=== PATIENT | male | born 1980 | race Two or more races ===

== ENCOUNTER 2022-08-07 14:34 | Emergency (ER) | payer SELFPAY ==
[~2022-08-07] VITALS: Ht 175.3 cm; Wt 82.6 kg
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
[2022-08-07] MEDS: IV NS 0.9% 1,000 ML IV ONE ×2 (14:48→16:48)
[2022-08-07] MEDS ORDERED: LIDOCAINE 5% OINT 35.44 GM TUBE TP STA (14:58)
[2022-08-07] MEDS ORDERED: TDAP [DIPH/PERTUSSIS/TET] 0.5 ML VIAL IM ONE ×2 (15:00→15:23)
[2022-08-07] MEDS ORDERED: LIDOCAINE VISCOUS 2% UD 15 ML UDC ONE (15:22)
[2022-08-07 15:28] LABS: CREATININE 1.4 mg/dL (0.6-1.3); POTASSIUM 4.1 mmol/L (3.5-5.1)
[2022-08-07] MEDS ORDERED: CT SWABBABLE VALVE TRANS SET 1 EA INFUS.SET MC ONE (15:43)
[2022-08-07] MEDS ORDERED: IV NS 0.9% 250 ML IV ONE (15:43)
[2022-08-07] MEDS ORDERED: IOHEXOL-350 100 ML VIAL IV ONE (15:43)
[2022-08-07] MEDS ORDERED: LIDO85CR9 TP (16:37)
[2022-08-07] MEDS ORDERED: CYCL5TAB PO (16:37)
[2022-08-07] MEDS ORDERED: TYL2T PO (16:37)
[2022-08-07] MEDS ORDERED: CYCLOBENZAPRINE 10 MG TABLET ONE (16:39)
[2022-08-07] MEDS ORDERED: CYCLOBENZAPRINE 10 MG TABLET PO ONE (17:00)
--- NOTE | 2022-08-07 18:16 | NUR ---
Patient discharged to home in stable condition, ambulating. Written and verbal after care instructions given. Patient verbalizes understanding of instruction.
[2022-08-07 18:17] VITALS: BP 132/87
[2022-08-15] MEDS ORDERED: CYCL5TAB PO (15:54)
[2022-08-15] MEDS ORDERED: LIDO85CR9 TP (15:54)
[2022-08-15] MEDS ORDERED: TYL2T PO (15:54)
== END 2022-08-07 18:17 | disposition home or self-care (01) ==
LOC: ER 14:36
DX: T71.161A Asphyxiation due to hanging, accidental, initial encounter (principal); Y93.89 Activity, other specified; Y92.89 Other specified places as the place of occurrence of the external cause; Y99.8 Other external cause status
CPT/HCPCS: 99285; 96360; 70498; 80048; 36415; J7030; J7050; Q9967; 90715